=== PATIENT | female | born 1955 | race Caucasian/White ===

== ENCOUNTER 2017-03-16 11:18 | Emergency (ER) | payer SELFPAY ==
[~2017-03-16] VITALS: Ht 152.4 cm; Wt 78.0 kg
[~2017-03-16 11:18] MED LIST: FISH100020 PO; METO25 PO; TAB-TAB PO
[2017-03-16 11:20] VITALS: BP 120/72; PULSE 66; RESP 16; TEMP 97.9; O2SAT 96
[2017-03-16] MEDS ORDERED: METO25TA3 PO (11:31)
--- NOTE | 2017-03-16 11:52 | PD ---
HPI Chief Complaint: Musculoskeletal Complaint Time Seen by Provider: 11:36 Travel History International Travel<30 days: No Contact w/Intl Traveler<30days: No Traveled to known affect area: No History of Present Illness HPI 61-year-old female presents to the emergency room for evaluation of left knee pain for the past 3 days. Patient states she hurt her knee a few months ago while walking and it has been hurting intermittently since but 3 days ago it worsened when she hyperextended it and heard a pop. Pain is localized to the medial left knee with radiation down the back of her leg and up into her thigh. Worsened ambulation and range of motion. Pain has been constant, even at night. She has been ambulatory since then. She's been taking Tylenol arthritis without significant relief in symptoms. Patient denies paresthesias. Only history of hypertension. PFSH Past Medical History Hypertension: Yes Immunizations Current: Yes Tetanus Vaccination: Unknown Influenza Vaccination: No ?: Not Past Surgical History Surgical History: No Previous Surgery Social History Alcohol Use: No Tobacco Use: No Substance Use: No Allergies-Medications (Allergen,Severity, Reaction): Coded Allergies: No Known Allergies (Unverified , 04/10/15) Reported Meds & Prescriptions Reported Meds & Active Scripts Active Reported Metoprolol Tartrate 25 Mg Tab 12.5 Mg PO BID Review of Systems Except as stated in HPI: all other systems reviewed are Neg Physical Exam Narrative GENERAL: Well-nourished, well-developed female in no acute distress. Afebrile. SKIN: Focused skin assessment warm/dry. No erythema or ecchymosis. HEAD: Normocephalic. EYES: No scleral icterus. No injection or drainage. NECK: Supple, trachea midline. No JVD or lymphadenopathy. CARDIOVASCULAR: Regular rate and rhythm without murmurs, gallops, or rubs. RESPIRATORY: Breath sounds equal bilaterally. No accessory muscle use. EXTREMITY: Left knee mildly tender to palpation over the medial aspect. Full range of motion in all joints. No noticeable edema or effusion. 2+ dorsalis pedis pulse. Data Data Last Documented VS Vital Signs Date Time Temp Pulse Resp B/P Pulse Ox O2 Delivery O2 Flow Rate FiO2 03/16/17 11:20 97.9 66 16 120/72 96 Orders Knee, Complete (4vws) (03/16/17 ) [facility] Medical Decision Making Medical Screen Exam Complete: Yes Emergency Medical Condition: Yes Medical Record Reviewed: Yes Differential Diagnosis Arthritis versus effusion versus ligamentous injury Narrative Course 61-year-old female presents to the emergency room for evaluation of left knee pain for the past 3 days that worsened after she hyperextended it and heard a pop. Left lower extremity is neurovascularly intact with 2+ dorsalis pedis pulse. Patient has been ambulatory since onset of symptoms. Physical exam is unremarkable. No erythema, ecchymosis, edema, effusion, or tenderness to palpation. She was informed that an x-ray will not likely shows the etiology of symptoms as it is unlikely to be a fracture however she wishes to proceed. X -ray shows no acute bony abnormality, mild osteoarthritis. Patient told to continue taking Tylenol and Motrin for pain. Told to follow up with her primary care physician if symptoms persist for outpatient MRI. She understands and agrees to plan. Diagnosis Primary Impression: Knee pain, acute Qualified Code: M25.562 - Acute pain of left knee Additional Impression: Osteoarthritis Qualified Code: M17.12 - Primary osteoarthritis of left knee Referrals: Primary Care Physician Patient Instructions: General Instructions, Knee Pain (ED) Additional Instructions: Rest and drink plenty of fluids. Take 600 mg ibuprofen with food every 8 hours, as needed for pain. Apply ice to the affected area for 20 minutes at a time, as needed for pain and swelling. Follow-up with a primary care physician. Return to the emergency room for worsening symptoms. Disposition: 01 DISCHARGE HOME Condition: Stable Bisi Murillo March 16, 2017 11:52
--- NOTE | 2017-03-16 12:22 | RADHPO ---
EXAM DATE/TIME: 03/16/2017 12:06 [facility] COMPARISON: No previous studies available for comparison. INDICATIONS : Left knee pain after twisting knee MEDICAL HISTORY : None. SURGICAL HISTORY : None. ENCOUNTER: Initial ACUITY: 4 - 6 days PAIN SCORE: 5/10 LOCATION: Left entire knee FINDINGS: Four view examination of the left knee demonstrates no evidence of fracture or dislocation. Bony min eralization is normal. The articular surfaces are intact. Mild osteoarthritic changes are noted with sclerosis and slight spurring. The suprapatellar soft tissues have a normal configuration. CONCLUSION: 1. No acute fracture or malalignment. 2. Mild osteoarthritic change. Kian Adams MD on March 16, 2017 at 12:20 Board Certified Radiologist. This report was verified electronically.
== END 2017-03-16 12:41 | disposition home or self-care (01) ==
LOC: PHEFT 11:18
DX: M25.562 Pain in left knee (principal); M17.12 Unilateral primary osteoarthritis, left knee; I10 Essential (primary) hypertension
CPT/HCPCS: 73564; 99283